=== PATIENT | female | born 1990 | race Caucasian/White ===

== ENCOUNTER → 2016-12-20 | Outpatient (CLI) | payer OTHER | LOC: SBRMNEURO 21:30 | PROVIDERS: ATTEND Internal Medicine Pulmonary Disease | DX: G47.33 Obstructive sleep apnea (adult) (pediatric) (principal) ==

== ENCOUNTER → 2017-06-27 | Outpatient (CLI) | payer OTHER | LOC: FCPNEURO 20:00 | PROVIDERS: ATTEND Internal Medicine Pulmonary Disease | DX: Z13.89 Encounter for screening for other disorder (principal) ==

== ENCOUNTER 2018-07-11 16:38 | Emergency (ER) | payer BC, OTHER ==
[2018-07-11] MEDS ORDERED: ONDANSETRON 4 MG/2 ML VIAL IVP ONE (16:57)
[2018-07-11] MEDS ORDERED: NS 1,000 ML IV ONE (16:57)
[2018-07-11] MEDS ORDERED: KETOROLAC 30 MG/1 ML SDV IVP ONE (16:57)
--- NOTE | 2018-07-11 17:01 | EDPHY ---
H & P Stated Complaint: Nausea, vomiting, epigastric cramping x 22 hrs Time Seen by Provider: 07/11/18 16:51 HPI/ROS: CHIEF COMPLAINT: Abdominal cramping and nausea HISTORY OF PRESENT ILLNESS: Patient is a 27-year-old female who comes to the emergency department with mom complaining of abdominal cramping and nausea that began last night after eating [place] dinner. She has not vomited but feels nauseous when she tries to drink. She states that she has not had an appetite to eat. She has not had diarrhea but states that she had slightly loose stool yesterday evening. She has not had any bowel movements today. She also complains of low-grade fever up to 99 degrees and intermittent chills. She states that she "just does not feel right". She denies urinary symptoms. She denies vaginal symptoms. She denies . She describes the pain is upper abdomen and right side. Severity: Moderate Modifying factors: None REVIEW OF SYSTEMS: Constitutional: See HPI EENTM: denies: blurred vision, double vision, nose congestion Respiratory: denies: cough, shortness of breath Cardiac: denies: chest pain, irregular heart rate, lightheadedness, palpitations Gastrointestinal/Abdominal: See HPI Genitourinary: denies: dysuria, frequency, hematuria, pain Musculoskeletal: denies: joint pain, muscle pain Skin: denies: lesions, rash, jaundice, bruising Neurological: denies: headache, numbness, paresthesia, tingling, dizziness, weakness Hematologic/Lymphatic: denies: blood clots, easy bleeding, easy bruising Immunologic/allergic: denies: HIV/AIDS, transplant 10 systems reviewed and negative except as noted EXAM: GENERAL: Well-appearing, overweight and in no acute distress. HEAD: Atraumatic, normocephalic. EYES: Pupils equal round and reactive to light, extraocular movements intact, sclera anicteric, conjunctiva are normal. ENT: TMs normal, nares patent, oropharynx clear without exudates. Moist mucous membranes. NECK: Normal range of motion, supple without lymphadenopathy or JVD. LUNGS: Breath sounds clear to auscultation bilaterally and equal. No wheezes rales or rhonchi. HEART: Regular rate and rhythm without murmurs, rubs or gallops. ABDOMEN: Soft, nontender, normoactive bowel sounds. No guarding, no rebound. No masses appreciated. BACK: No CVA tenderness, no spinal tenderness, step-offs or deformities EXTREMITIES: Normal range of motion, no pitting or edema. No clubbing or cyanosis. NEUROLOGICAL: Cranial nerves II through XII grossly intact. Normal speech, normal gait. 5/5 strength, normal movement in all extremities, normal sensation , normal reflexes PSYCH: Normal mood, normal affect. SKIN: Warm, dry, normal turgor, no visible rashes or lesions. Source: Patient Exam Limitations: No limitations - Personal History LMP (Females 10-55): IUD In Place Current Tetanus Diphtheria and Acellular Pertussis (TDAP): Yes Tetanus Vaccine Date: within 10 years - Medical/Surgical History Hx Asthma: No Hx Chronic Respiratory Disease: No Hx Diabetes: No Hx Cardiac Disease: No Hx Renal Disease: No Hx Cirrhosis: No Hx Alcoholism: No Hx HIV/AIDS: No Hx Splenectomy or Spleen Trauma: No Other PMH: L knee arthroscopy, migraines, hypothyroidism - Family History Significant Family History: No pertinent family hx - Social History Smoking Status: Never smoked Alcohol Use: None Constitutional: Initial Vital Signs Temperature (C) 36.5 C 07/11/18 16:44 Heart Rate 70 07/11/18 16:44 Respiratory Rate 16 07/11/18 16:44 Blood Pressure 123/79 H 07/11/18 16:44 O2 Sat (%) 94 07/11/18 16:44 O2 Delivery Mode Room Air Allergies/Adverse Reactions: No Known Allergies Allergy (Unverified 02/19/10 14:57) Home Medications: Medication Instructions Recorded Abikeli 07/11/18 Ondansetron Odt [Zofran Odt 4 mg 4 mg PO Q4 PRN #20 tab 07/11/18 (RX)] Synthroid 100 mcg (*) 07/11/18 Topamax 07/11/18 Medical Decision Making - Diagnostics Imaging Results: Imaging Impressions Abdomen Ultrasound 07/11/18 16:58 Impression: No cholelithiasis or biliary ductal dilation. Findings and recommendations discussed with Emergency Department physician, CRISTHIAN SANCHEZ at 17:36 hour, 07/11/2018. Final report concurs with initial preliminary interpretation. Imaging: Discussed imaging studies w/ call person Radiologist ED Course/Re-evaluation: Patient complains that her cramping has primarily been in the upper abdomen and initially she points to her right side however on exam she states that it seems that be more painful in the left lower quadrant. Will obtain ultrasound of both areas as well as lab work and treat with IV fluids and medications and observe. 5:50 p.m. the patient refused a pelvic ultrasound. Abdominal exam remains benign. She tells me that she is not having lower abdominal symptoms. Her right upper quadrant ultrasound is very reassuring. Lab work is also very reassuring. She feels much better after Zofran and Toradol and feels ready to go home. Will have her finish this L of fluid and discharge with prescriptions. She and mom understand agree with this plan. Discussed indications for returning. Differential Diagnosis: Partial list of the Differential diagnosis considered include but were not limited to; nausea, abdominal cramping, gastritis and although unlikely based on the history and physical exam, I also considered influenza, biliary disease, peptic ulcer disease, ovarian cyst, ovarian torsion, kidney stone, pyelonephritis. I discussed these differential diagnoses and the plan with the patient as well as the usual and expected course. The patient understands that the diagnosis is provisional and that in medicine we are not always correct and that further workup is often warranted. Usual and customary warnings were given. All of the patient's questions were answered. The patient was instructed to return to the emergency department should the symptoms at all worsen or return, otherwise to followup with the physician as we discussed. - Data Points Laboratory Results: 07/11/18 17:18 POC Sodium 140 mEq/L mEq/L (135-145) POC Potassium 3.5 mEq/L mEq/L (3.3-5.0) POC Chloride 106.0 mEq/L mEq/L (97-110) POC Total CO2 22 mEq/L mEq/L (22-31) POC BUN 11 mg/dL mg/dL (7-23) POC Creatinine 0.9 mg/dL mg/dL (0.6-1.0) POC Glucose 104 mg/dL H mg/dL (70-100) POC Calcium 8.3 mg/dL L mg/dL (8.5-10.4) POC Total Bilirubin 1.2 mg/dL mg/dL (0.1-1.4) POC AST 22 IU/L IU/L (14-46) POC ALT 21 IU/L IU/L (9-52) POC Alk Phosphatase 52 IU/L IU/L (38-126) POC Total Protein 6.9 g/dL g/dL (6.3-8.2) POC Albumin 3.5 g/dL g/dL (3.5-5.0) Medications Given: Discontinued Medications Sodium Chloride (Ns) 1,000 mls @ 0 mls/hr IV EDNOW ONE; Wide Open PRN Reason: Protocol Stop: 07/11/18 16:58 Last Admin: 07/11/18 17:11 Dose: 1,000 mls Ketorolac Tromethamine (Toradol) 15 mg IVP EDNOW ONE Stop: 07/11/18 16:58 Last Admin: 07/11/18 17:11 Dose: 15 mg Ondansetron HCl (Zofran) 4 mg IVP EDNOW ONE Stop: 07/11/18 16:58 Last Admin: 07/11/18 17:09 Dose: 4 mg Point of Care Test Results: CBC CBC Collection Date 07/11/18 CBC Collection Time 17:08 WBC 6.96 RBC 5.21 HGB 15.6 HCT 46.4 PLT 194 Neut # 5.63 Neut 80.9 LYMPH # 0.76 LYMPH 10.9 MCV 89.1 Chemistry 07/11/18 17:18 POC Sodium 140 mEq/L mEq/L (135-145) POC Potassium 3.5 mEq/L mEq/L (3.3-5.0) POC Chloride 106.0 mEq/L mEq/L (97-110) POC Total CO2 22 mEq/L mEq/L (22-31) POC BUN 11 mg/dL mg/dL (7-23) POC Creatinine 0.9 mg/dL mg/dL (0.6-1.0) POC Glucose 104 mg/dL H mg/dL (70-100) POC Calcium 8.3 mg/dL L mg/dL (8.5-10.4) POC Total Bilirubin 1.2 mg/dL mg/dL (0.1-1.4) POC AST 22 IU/L IU/L (14-46) POC ALT 21 IU/L IU/L (9-52) POC Alk Phosphatase 52 IU/L IU/L (38-126) POC Total Protein 6.9 g/dL g/dL (6.3-8.2) POC Albumin 3.5 g/dL g/dL (3.5-5.0) Urine Collection Date 07/11/18 Collection Time 17:45 HCG Results Negative Urine Dip Collection Date 07/11/18 Collection Time 17:45 Specific [place] (1.002-1.030) 1.030 PH (5.0-7.5) 6.0 Leukocytes (Negative) Negative Nitrites (Negative) Negative Protein (Negative) Trace Glucose (Negative) Negative Ketones (Negative) Negative Urobilnogen (0.2-1.0 EU) 0.2 Bilirubin (Negative) Negative Blood (Negative) Negative Departure - Departure Disposition: Home, Routine, Self-Care Clinical Impression: Nausea, Abdominal cramping Condition: Fair Instructions: Acute Nausea and Vomiting (ED) Referrals: Peng Copeland MD [Primary Care Provider] - As per Instructions Prescriptions: Ondansetron Odt [Zofran Odt 4 mg (RX)] 4 mg PO Q4 PRN #20 tab PRN Reason: Nausea & Vomiting
[2018-07-11 18:36] VITALS: BP 115/62
== END 2018-07-11 18:06 | disposition home or self-care (01) ==
LOC: CED 16:38
DX: R11.0 Nausea (principal); R10.9 Unspecified abdominal pain; E86.9 Volume depletion, unspecified
CPT/HCPCS: 76705-PO; 80053-ER; 81025-ER; 85025-QW-ER; 96361-ER; 96374-ER; 96375-ER; 99285-ER; J1885; J2405